=== PATIENT | male | born 1960 | race Caucasian/White ===

== ENCOUNTER 2016-07-18 21:11 | Emergency (ER) | payer OTHER ==
[~2016-07-18] VITALS: Ht 170.2 cm; Wt 109.1 kg
[2016-07-18 21:32] VITALS: BP 108/65
[2016-07-18 22:05] LABS: HEMATOCRIT 41.2 % (38.0-50.0); MCH 28.6 PG (29.0-34.0); MCHC 33.5 G/DL (30.0-36.0); MCV 85.5 FL (86-99); MEAN PLAT.VOLUME 9.7 uM^3 (9.0-12.4); PLATELET COUNT 250 K/uL (156-360); RBC DIS.WIDTH-SD 40.5 % (39-53); RED BLOOD COUNT 4.82 M/uL (4.00-5.50); WHITE BLOOD COUNT 9.3 K/uL (4.1-10.2)
[2016-07-18 22:15] LABS: CHLORIDE 109 mEq/L (99-109); POTASSIUM 3.6 mEq/L (3.7-5.4); SODIUM 143 mEq/L (136-147)
[2016-07-18 22:17] LABS: GLUCOSE 157 mg/dL (70-99)
[2016-07-18 22:19] LABS: ANION GAP 11 MEQ/L (2-14)
[2016-07-18 22:21] LABS: GFR ESTIMATE (CALCULATED) > 59 mL/min/
[2016-07-18 22:22] LABS: UREA NITROGEN (BUN) 22 mg/dL (9-23)
== END 2016-07-18 23:36 | disposition home or self-care (01) ==
LOC: EME 21:11
DX: K62.5 Hemorrhage of anus and rectum (principal)
CPT/HCPCS: 80048; 85027; 86900; 86901; 99281; 99284

== ENCOUNTER 2017-01-08 11:33 | Emergency (ER) | payer OTHER ==
[~2017-01-08] VITALS: Ht 170.2 cm; Wt 108.1 kg
[2017-01-08 13:21] LABS: HEMATOCRIT 44.4 % (38.0-50.0); MCH 27.7 PG (29.0-34.0); MCHC 32.4 G/DL (30.0-36.0); MCV 85.4 FL (86-99); PLATELET COUNT 234 K/uL (156-360); RBC DIS.WIDTH-CV 14.2 % (11.8-14.6); RBC DIS.WIDTH-SD 44.2 % (39-53); WHITE BLOOD COUNT 9.7 K/uL (4.1-10.2)
[2017-01-08] MEDS ORDERED: NAPROSYN500 MG PO (14:02)
[2017-01-08 14:47] VITALS: BP 128/67
== END 2017-01-08 14:48 | disposition home or self-care (01) ==
LOC: EME 11:33
PROVIDERS: Nurse Practitioner Family
DX: M25.471 Effusion, right ankle (principal); Z86.718 Personal history of other venous thrombosis and embolism
CPT/HCPCS: 73610; 84550; 85027; 93971; 99281; 99283

== ENCOUNTER 2017-03-28 22:24 | Observation (INO) | payer OTHER ==
[~2017-03-28] VITALS: Ht 170.2 cm; Wt 110.9 kg
[~2017-03-28 22:24] MED LIST: NAPROSYN500 MG PO
[2017-03-28 22:46] LABS: HEMATOCRIT 46.8 % (38.0-50.0); HEMOGLOBIN 16.1 G/DL (12.5-16.6); MCH 28.9 PG (29.0-34.0); MCHC 34.4 G/DL (30.0-36.0); PLATELET COUNT 252 K/uL (156-360); RBC DIS.WIDTH-CV 13.3 % (11.8-14.6); RBC DIS.WIDTH-SD 41.2 % (39-53); RED BLOOD COUNT 5.57 M/uL (4.00-5.50)
[2017-03-28 22:58] LABS: CHLORIDE 107 mEq/L (99-109); POTASSIUM 4.2 mEq/L (3.7-5.4); SODIUM 139 mEq/L (136-147)
[2017-03-28 23:00] LABS: GLUCOSE 95 mg/dL (70-99)
[2017-03-28 23:04] LABS: CREATININE 1.2 mg/dL (0.6-1.3); GFR ESTIMATE (CALCULATED) > 59 mL/min/ (58.99-99999); UREA NITROGEN (BUN) 25 mg/dL (9-23)
[2017-03-28 23:06] LABS: TROP-I INTERPRETATION NEGATIVE; TROPONIN-I < 0.01 ng/mL (0.0-0.30)
[2017-03-29 01:32] LABS: TROP-I INTERPRETATION NEGATIVE; TROPONIN-I 0.01 ng/mL (0.0-0.30)
[2017-03-29] MEDS ORDERED: ROSUVASTATIN CAL5 MG PO (09:07)
[2017-03-29] MEDS ORDERED: ASPIR-LOW81 MG PO (09:08)
[2017-03-29] MEDS ORDERED: NAPROXEN250 MG PO (09:09)
[2017-03-29 11:05] LABS: TROP-I INTERPRETATION NEGATIVE; TROPONIN-I < 0.01 ng/mL (0.0-0.30)
[2017-03-29] MEDS ORDERED: NITROGLYCERIN0.4 MG SL (12:18)
[2017-03-29] MEDS ORDERED: OMEPRAZOLE40 M1 PO (12:20)
[2017-03-29 13:36] VITALS: BP 97/58
== END 2017-03-29 14:46 | disposition home or self-care (01) ==
LOC: EME 22:24 → EDOF 03-29 07:56 → ENRESERV 03-29 07:59 → CANRESERV 03-29 08:39 → EDOF 03-29 14:46
PROVIDERS: Nurse Practitioner Family
DX: R07.9 Chest pain, unspecified (principal); Z86.718 Personal history of other venous thrombosis and embolism; R79.89 Other specified abnormal findings of blood chemistry; E78.5 Hyperlipidemia, unspecified; R73.01 Impaired fasting glucose; E66.9 Obesity, unspecified; D86.9 Sarcoidosis, unspecified; Z79.1 Long term (current) use of non-steroidal anti-inflammatories (NSAID); I25.10 Atherosclerotic heart disease of native coronary artery without angina pectoris; M54.2 Cervicalgia; R61 Generalized hyperhidrosis; R51 Headache; Z80.41 Family history of malignant neoplasm of ovary
CPT/HCPCS: 71046; 71275; 80048; 84484; 85027; 90686; 93005; 99281; 99285; G0378; J7030

== ENCOUNTER 2017-06-07 21:11 | Observation (INO) | payer OTHER ==
[~2017-06-07] VITALS: Ht 170.2 cm; Wt 106.3 kg
[~2017-06-07 21:11] MED LIST changes: +ASPIR-LOW81 MG PO; +NAPROXEN250 MG PO; +NITROGLYCERIN0.4 MG SL; +OMEPRAZOLE40 M1 PO; +ROSUVASTATIN CAL5 MG PO
[2017-06-07 21:45] LABS: HEMATOCRIT 47.5 % (38.0-50.0); HEMOGLOBIN 16.1 G/DL (12.5-16.6); MCHC 33.9 G/DL (30.0-36.0); MCV 85.6 FL (86-99); PLATELET COUNT 250 K/uL (156-360); RBC DIS.WIDTH-CV 13.5 % (11.8-14.6); RBC DIS.WIDTH-SD 42.3 % (39-53); RED BLOOD COUNT 5.55 M/uL (4.00-5.50); WHITE BLOOD COUNT 8.6 K/uL (4.1-10.2)
[2017-06-07 21:54] LABS: CHLORIDE 106 mEq/L (99-109); SODIUM 144 mEq/L (136-147)
[2017-06-07 21:56] LABS: GLUCOSE 162 mg/dL (70-99)
[2017-06-07 22:00] LABS: CREATININE 1.3 mg/dL (0.6-1.3); GFR ESTIMATE (CALCULATED) > 59 mL/min/ (58.99-99999); UREA NITROGEN (BUN) 31 mg/dL (9-23)
[2017-06-07 22:11] LABS: TROP-I INTERPRETATION NEGATIVE; TROPONIN-I 0.02 ng/mL (0.0-0.30)
[2017-06-07 22:13] LABS: ALBUMIN 3.8 g/dL (3.2-4.8)
[2017-06-07 22:17] LABS: TOTAL BILIRUBIN 0.5 mg/dL (0.0-1.0)
[2017-06-07 22:18] LABS: ALKALINE PHOSPHATASE 88 IU/L (3-129)
[2017-06-07 22:21] LABS: AST (GOT) 17 IU/L (2-34); DIRECT BILIRUBIN 0.2 mg/dL (0.0-0.3)
[2017-06-07 22:22] LABS: ALT (GPT) 17 IU/L (3-49); LIPASE 29 U/L (1.0-51.0)
[2017-06-08 01:56] VITALS: BP 108/68
[2017-06-08 02:37] LABS: TROP-I INTERPRETATION NEGATIVE; TROPONIN-I 0.13 ng/mL (0.0-0.30)
[2017-06-08 07:49] VITALS: BP 107/62
[2017-06-08 08:54] LABS: TROP-I INTERPRETATION NEGATIVE; TROPONIN-I 0.14 ng/mL (0.0-0.30)
[2017-06-08 12:11] VITALS: BP 115/68
== END 2017-06-08 13:48 | disposition home or self-care (01) ==
LOC: EME → EDBD 21:11 → EDOF 06-08 01:06 → 5WEST 06-08 01:06 → EDOF 06-08 01:06 → ENRESERV 06-08 01:07 → 5WEST 06-08 01:53
PROVIDERS: Hospitalist
DX: R07.9 Chest pain, unspecified (principal); I47.9 Paroxysmal tachycardia, unspecified; R73.03 Prediabetes; R00.1 Bradycardia, unspecified; Z86.718 Personal history of other venous thrombosis and embolism; D86.9 Sarcoidosis, unspecified; R61 Generalized hyperhidrosis; M54.2 Cervicalgia; Z79.82 Long term (current) use of aspirin; Z90.49 Acquired absence of other specified parts of digestive tract; Z80.41 Family history of malignant neoplasm of ovary
CPT/HCPCS: 71046; 80048; 80076; 83690; 84484; 85027; 93005; 99281; 99285; G0378; J7030

== ENCOUNTER 2017-08-12 22:08 | Inpatient (IN) | payer OTHER ==
[~2017-08-12] VITALS: Ht 170.2 cm; Wt 112.5 kg
[2017-08-12 23:46] LABS: BASOPHIL COUNT 0.1 K/uL (0-0.1); EOSINOPHIL (%) 2.8 % (0-5); EOSINOPHIL COUNT 0.2 K/uL (0-0.3); HEMATOCRIT 43.5 % (38.0-50.0); HEMOGLOBIN 14.9 G/DL (12.5-16.6); IMMATURE GRANULOCYTE (%) 0.2 % (0.0-0.7); LYMPHOCYTE (%) 19.7 % (15-42); LYMPHOCYTE COUNT 1.6 K/uL (1.0-2.8); MCH 28.8 PG (29.0-34.0); MCHC 34.3 G/DL (30.0-36.0); MCV 84.1 FL (86-99); MONOCYTE (%) 8.6 % (3-12); MONOCYTE COUNT 0.7 K/uL (0-0.8); NEUTROPHIL (%) 67.7 % (45-76); NEUTROPHIL COUNT 5.5 K/uL (1.8-6.4); PLATELET COUNT 212 K/uL (156-360); RBC DIS.WIDTH-CV 13.1 % (11.8-14.6); RBC DIS.WIDTH-SD 40.8 % (39-53); RED BLOOD COUNT 5.17 M/uL (4.00-5.50); WHITE BLOOD COUNT 8.1 K/uL (4.1-10.2)
[2017-08-12 23:59] LABS: ALBUMIN 3.8 g/dL (3.2-4.8)
[2017-08-13] LABS: CHLORIDE 105 mEq/L (99-109); SODIUM 138 mEq/L (136-147)
[2017-08-13 00:02] LABS: GLUCOSE 110 mg/dL (70-99); TOTAL PROTEIN 7.4 g/dL (6.4-8.3)
[2017-08-13 00:04] LABS: TOTAL BILIRUBIN 0.4 mg/dL (0.0-1.0)
[2017-08-13 00:05] LABS: ALKALINE PHOSPHATASE 88 IU/L (3-129)
[2017-08-13 00:06] LABS: GFR ESTIMATE (CALCULATED) > 59 mL/min/ (58.99-99999)
[2017-08-13 00:07] LABS: AST (GOT) 16 IU/L (2-34); UREA NITROGEN (BUN) 33 mg/dL (9-23)
[2017-08-13 00:09] LABS: ALT (GPT) 16 IU/L (3-49)
[2017-08-13 00:11] LABS: PTT 28.3 SEC (25-37)
[2017-08-13 02:30] VITALS: BP 97/56
[2017-08-13 02:38] VITALS: BP 101/56
[2017-08-13 07:36] VITALS: BP 94/56
[2017-08-13 12:48] VITALS: BP 110/62
[2017-08-13 15:54] LABS: INTER. NORMALIZED RATIO 1.6
[2017-08-13 20:15] VITALS: BP 117/65
== END 2017-08-13 20:24 | disposition short-term general hospital (02) | DRG 301 ==
LOC: EME 22:08 → EDOF 08-13 01:13 → ENRESERV 08-13 01:14 → 4SOUTH 08-13 02:21
PROVIDERS: Emergency Medicine; Internal Medicine
DX: I82.421 Acute embolism and thrombosis of right iliac vein (principal); I82.411 Acute embolism and thrombosis of right femoral vein; I82.431 Acute embolism and thrombosis of right popliteal vein; I82.441 Acute embolism and thrombosis of right tibial vein; E78.5 Hyperlipidemia, unspecified; E66.9 Obesity, unspecified; D86.0 Sarcoidosis of lung; G47.33 Obstructive sleep apnea (adult) (pediatric); Z85.828 Personal history of other malignant neoplasm of skin; Z90.49 Acquired absence of other specified parts of digestive tract; Z79.82 Long term (current) use of aspirin; Z79.899 Other long term (current) drug therapy; Z79.01 Long term (current) use of anticoagulants; Z68.38 Body mass index [BMI] 38.0-38.9, adult; Z86.718 Personal history of other venous thrombosis and embolism
CPT/HCPCS: 80053; 81240 90; 83090 90; 85025; 85240 90; 85300 90; 85303 90; 85305 90; 85306 90; 85610; 85613 90; 85730; 85730 90; 86146 90; 86147 90; 93005; 93971; 94660; 99281; 99285; J7030; J7040